=== PATIENT | male | born 1980 | race Caucasian/White ===

== ENCOUNTER 2020-11-07 14:24 | Emergency (ER) | payer OTHER ==
[~2020-11-07] VITALS: Ht 177.8 cm; Wt 70.6 kg
--- NOTE | 2020-11-07 14:38 | NUR ---
PT BROUGHT BACK TO ROOM VIA WC.
--- NOTE | 2020-11-07 14:46 | NUR ---
PATIENT WALKED BACK FROM TRIAGE WITH CHIEF C/O MIGRAINE X2 DAYS. PATIENT REPORTS HE HIT THE LEFT-SIDE OF HIS HEAD ON THE BACK OF A TRUCK, DENIES LOC. PATIENT WOKE UP THE NEXT DAY WITH N/V, CARRILLO, AND OFF BALANCE. NADN, VSS, CALL LIGHT WITHIN REACH.
[2020-11-07] MEDS ORDERED: ACETAMINOPHEN 325 MG TABLET ONE (14:57)
[2020-11-07] MEDS ORDERED: ONDANSETRON ODT 4 MG ONE (14:57)
[2020-11-07] MEDS ORDERED: ONDANSETRON ODT 4 MG PO ONE (15:00)
[2020-11-07] MEDS ORDERED: ACETAMINOPHEN 325 MG TABLET PO ONE (15:00)
--- NOTE | 2020-11-07 15:04 | NUR ---
PATIENT TO CT SCAN.
--- NOTE | 2020-11-07 15:26 | NUR ---
[facility] AT BEDSIDE TO DISCUSS POC AND DISCHARGE DISPO.
[2020-11-07 15:30] VITALS: BP 117/84
--- NOTE | 2020-11-07 15:39 | NUR ---
Patient given discharge instructions and prescription and they have confirmed that they understand the instructions, all questions answered. Work note provided to patient. Patient stable and ambulatory with steady gait from ED.
== END 2020-11-07 15:40 | disposition home or self-care (01) ==
LOC: ED 14:53
DX: S09.90XA Unspecified injury of head, initial encounter (principal); R11.2 Nausea with vomiting, unspecified; X58.XXXA Exposure to other specified factors, initial encounter; Y93.89 Activity, other specified; Y92.009 Unspecified place in unspecified non-institutional (private) residence as the place of occurrence of the external cause; Y99.8 Other external cause status
CPT/HCPCS: 70450; 99284; Q0162